=== PATIENT | female | born 1960 | race Caucasian/White ===

== ENCOUNTER → 2017-05-17 | Outpatient (CLI) | payer BC ==
--- NOTE | 2017-05-17 14:20 | MR ---
EXAMINATION TYPE: MR knee LT wo con DATE OF EXAM: 05/17/2017 COMPARISON: NONE HISTORY: Meniscus Tear, left knee pain TECHNIQUE: Multiplanar, multisequence imaging of the left knee is performed without IV contrast. FINDINGS: MEDIAL MENISCUS: Anterior and posterior horns are intact without tear. 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 LATERAL MENISCUS: Anterior and posterior horns are intact without tear. CRUCIATE LIGAMENTS: The anterior and posterior cruciate ligaments are intact and unremarkable. COLLATERAL LIGAMENTS: The medial collateral ligament and lateral collateral ligament complex are inta ct and unremarkable. EXTENSOR MECHANISM: Visualized quadriceps and patellar tendons are intact. EFFUSION: No significant suprapatellar joint effusion. POPLITEAL CYST: No popliteal/lundberg cyst. TRICOMPARTMENT SPACES: There is fibrillation and thinning of the patellar cartilage particularly cent rally and along the medial patellar facet. There is a small amount of edema involving the lower pole of the patella and along the office fat pad. BONE MARROW SIGNAL: Small amount of marrow edema involving the inferior pole the patella. IMPRESSION: 1. 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 There is al so a small area of marrow edema involving the inferior pole with no fracture line. A mild amount of i nflammation and edema in the infrapatellar fat pad. 2. Intrasubstance signal within the posterior horn the medial meniscus most typical of myxoid degener ation no definite tear.
== END | disposition home or self-care (01) ==
LOC: RADMRIMAIN 13:26
PROVIDERS: ATTEND Student in an Organized Health Care Education/Training Program
DX: M22.42 Chondromalacia patellae, left knee (principal); M23.322 Other meniscus derangements, posterior horn of medial meniscus, left knee; M79.4 Hypertrophy of (infrapatellar) fat pad

== ENCOUNTER → 2018-05-03 | Outpatient (CLI) | payer BC ==
--- NOTE | 2018-05-04 15:07 | MM ---
Reason for exam: screening (asymptomatic). Last mammogram was performed 11 months ago. History: Patient is postmenopausal and had first child at age 34. Physical Findings: A clinical breast exam by your physician is recommended on an annual basis and results should be correlated with mammographic findings. MG 3D Screening Mammo W/Cad Bilateral CC and MLO view(s) were taken. Prior study comparison: June 13, 2017, bilateral MG screening mammo w CAD. June 03, 2016, bilateral MG screening mammo w CAD. The breast tissue is heterogeneously dense. This may lower the sensitivity of mammography. No significant changes when compared with prior studies. ASSESSMENT: Benign, BI-RAD 2 RECOMMENDATION: Routine screening mammogram of both breasts in 1 year.
== END | disposition home or self-care (01) ==
LOC: RADMAMWWP 09:32
PROVIDERS: ATTEND Obstetrics & Gynecology
DX: Z12.31 Encounter for screening mammogram for malignant neoplasm of breast (principal)
CPT/HCPCS: 77063; 77067

== ENCOUNTER → 2019-04-23 | Outpatient (CLI) | payer BC ==
--- NOTE | 2019-04-24 11:55 | MM ---
Reason for exam: screening (asymptomatic). Last mammogram was performed 1 year ago. History: Patient is postmenopausal and had first child at age 34. Physical Findings: A clinical breast exam by your physician is recommended on an annual basis and results should be correlated with mammographic findings. MG 3D Screening Mammo W/Cad Bilateral CC and MLO view(s) were taken. XCCL view(s) were taken of the right breast. Prior study comparison: May 03, 2018, bilateral MG 3d screening mammo w/cad. June 13, 2017, bilateral MG screening mammo w CAD. The breast tissue is heterogeneously dense. This may lower the sensitivity of mammography. There is no discrete abnormality. ASSESSMENT: Negative, BI-RAD 1 RECOMMENDATION: Routine screening mammogram of both breasts in 1 year.
== END | disposition home or self-care (01) ==
LOC: RADMAMWWP 07:53
PROVIDERS: ATTEND Obstetrics & Gynecology
DX: Z12.31 Encounter for screening mammogram for malignant neoplasm of breast (principal)
CPT/HCPCS: 77063; 77067

== ENCOUNTER → 2020-05-11 | Outpatient (CLI) | payer BC ==
--- NOTE | 2020-05-12 09:43 | MM ---
Reason for exam: screening (asymptomatic). Last mammogram was performed 1 year and 1 month ago. History: Patient is postmenopausal and had first child at age 34. Physical Findings: A clinical breast exam by your physician is recommended on an annual basis and results should be correlated with mammographic findings. MG 3D Screening Mammo W/Cad Bilateral CC and MLO view(s) were taken. Prior study comparison: April 23, 2019, bilateral MG 3d screening mammo w/cad. May 03, 2018, bilateral MG 3d screening mammo w/cad. The breast tissue is heterogeneously dense. This may lower the sensitivity of mammography. There is no discrete abnormality. No significant changes when compared with prior studies. ASSESSMENT: Negative, BI-RAD 1 RECOMMENDATION: Routine screening mammogram of both breasts in 1 year.
== END | disposition home or self-care (01) ==
LOC: RADMAMWWP 08:37
PROVIDERS: ATTEND Obstetrics & Gynecology
DX: Z12.31 Encounter for screening mammogram for malignant neoplasm of breast (principal)
CPT/HCPCS: 77063; 77067

== ENCOUNTER → 2021-04-30 | Outpatient (CLI) | payer BC ==
--- NOTE | 2021-05-03 12:07 | MM ---
Reason for exam: screening (asymptomatic). Last mammogram was performed 1 year ago. History: Patient is postmenopausal and had first child at age 34. Took hormonal contraceptives for 5 years. Physical Findings: A clinical breast exam by your physician is recommended on an annual basis and results should be correlated with mammographic findings. MG 3D Screening Mammo W/Cad Bilateral CC and MLO view(s) were taken. Prior study comparison: May 11, 2020, bilateral MG 3d screening mammo w/cad. April 23, 2019, bilateral MG 3d screening mammo w/cad. May 03, 2018, bilateral MG 3d screening mammo w/cad. The breast tissue is heterogeneously dense. This may lower the sensitivity of mammography. No significant changes when compared with prior studies. ASSESSMENT: Benign, BI-RAD 2 RECOMMENDATION: Routine screening mammogram of both breasts in 1 year.
== END | disposition home or self-care (01) ==
LOC: RADMAMWWP 09:45
PROVIDERS: ATTEND Obstetrics & Gynecology
DX: Z12.31 Encounter for screening mammogram for malignant neoplasm of breast (principal); Z78.0 Asymptomatic menopausal state
CPT/HCPCS: 77063; 77067

== ENCOUNTER → 2021-12-10 | Outpatient (CLI) | payer BC ==
--- NOTE | 2021-12-13 18:41 | MM ---
Reason for Exam: Screening (asymptomatic). Last screening mammogram was performed 8 month(s) ago. Patient History: Menarche at age 13. First Full-Term at age 34. Late child-bearing (after 30). Postmenopausal. Patient used Hormonal Contraceptives for 5 years. Paternal grandmother had breast cancer, age 40. Risk Values: Nery 5 year model risk: 2.0%. NCI Lifetime model risk: 10.0%. Prior Study Comparison: 04/23/2019 Bilateral Screening Mammogram, [facility]. 05/11/2020 Bilateral Screening Mammogram, [facility]. 04/30/2021 Bilateral Screening Mammogram, [facility]. Tissue Density: The breast tissue is heterogeneously dense. This may lower the sensitivity of mammography. Findings: Analyzed By CAD. No significant change from prior exams. Overall Assessment: Negative, BI-RAD 1 Management: Screening Mammogram of both breasts. 1. The patient should continue monthly breast exams. 2. This exam should not preclude additional follow-up of suspicious palpable abnormalities. Electronically signed and approved by: Maci Steward M.D. Radiologist
== END | disposition home or self-care (01) ==
LOC: RADMAMWWP 07:19
PROVIDERS: ATTEND Obstetrics & Gynecology
DX: Z12.31 Encounter for screening mammogram for malignant neoplasm of breast (principal); Z78.0 Asymptomatic menopausal state; Z80.3 Family history of malignant neoplasm of breast
CPT/HCPCS: 77063; 77067

== ENCOUNTER → 2022-05-19 | Outpatient (CLI) | payer BC ==
--- NOTE | 2022-05-19 16:47 | US ---
EXAMINATION TYPE: US thyroid st tissue head/neck DATE OF EXAM: 05/19/2022 COMPARISON: NONE CLINICAL HISTORY: 61-year-old female R22.1 LOCALIZED SWELLING, MASS AND LUMP, NECK. Palpable under ma ndible, just right of midline neck TECHNIQUE: Multiple sonographic images of the thyroid gland are obtained. FINDINGS: GLAND SIZE: Right Lobe: 5.5 x 1.5 x 1.3 cm Overall Parenchyma: homogenous Left Lobe: 4.0 x 1.2 x 1.7 cm Overall Parenchyma: homogeneous Isthmus Thickness: 0.3 cm NODULES RIGHT: # of nodules measured on right: 0 LEFT: # of nodules measured on left: 1 1. 1.2 X 0.7 x 0.8 cm, lower , benign cyst, which is wider than tall, with smooth margins, without echogenic foci. Prior size: PHARM SPEC ISTHMUS: # of nodules measured in the isthmus: 0 Additional targeted scanning along the patient's right-sided palpable site shows a thickened lymph no de measuring 1.3 x 1.1 x 0.6 cm near the right submandibular region. IMPRESSION: 1. A thickened and mildly enlarged 1.1 cm right submandibular lymph node at the patient's palpable si te. Correlate with physical exam findings to assess if this represents a suspicious node for which pe rcutaneous biopsy would be needed. Clinically, if this is suspected to represent a reactive/post infl ammatory lymph node, short interval follow-up ultrasound can be performed instead. 2. A benign 1.2 cm cyst of the left thyroid gland. No other thyroid nodules seen. 2017 ACR TI-RADS LEVEL: *Highest TI-RADS level nodule reported By [facility]. SHE IS ORIENTED IN AUGUST
== END | disposition home or self-care (01) ==
LOC: RADUSWWP 13:23
PROVIDERS: ATTEND Family Medicine
DX: E04.1 Nontoxic single thyroid nodule (principal); R59.0 Localized enlarged lymph nodes
CPT/HCPCS: 76536

== ENCOUNTER → 2022-11-22 | Outpatient (CLI) | payer BC ==
--- NOTE | 2022-11-22 09:06 | CT ---
EXAMINATION TYPE: CT sinus wo con CT DLP: 374 mGycm, Automated exposure control for dose reduction was used. DATE OF EXAM: 11/22/2022 7:28 AM COMPARISON: None. CLINICAL INDICATION:Female, 62 years old with history of G50.1 Atypical facial pain; Chronic sinusit is, atypical facial pain TECHNIQUE: Multiple thin axial images were obtained through the paranasal sinuses without the use of IV contrast. Additional coronal and sagittal reformatted images were submitted for evaluation. Contrast used: none Oral contrast used: none FINDINGS: Frontal sinuses: Normally developed and aerated. Frontal Recess: Clear Maxillary Sinuses: Normally developed and aerated. Maxillary Infundibula([facility]): Opacified left secondary to mucosal thickening. The right is patent. Ethmoid sinuses: Normally developed and aerated. Ethmoidal notch: Unprotected bilateral anterior ethm oidal arteries. Modified [place] Score: Sphenoid sinuses: Normally developed with mild mucosal thickening. There is sellar sphenoid sinus pne umatization without evidence of dehiscence. No dehiscence of carotid canal. No evidence of optic ner ve dehiscence within the sphenoid sinus. No evidence of Onodi cells. Sphenoethmoidal recesses: Clear . Nasal septum: Within normal limits.. Nasal Turbinates: Within normal limits. Mastoid air cells & middle ears: The air cells are clear. The middle ears are grossly unremarkable. Modified Soft tissues & Brain: Partially seen without gross abnormality. Globes are intact. Other: Cribriform plate demonstrates symmetric Keros classification type 2 cribriform plate. No evidence of bony dehiscence of skull base. Lamina papyracea is intact without evidence of remote orbital fracture or orbital prolapse into the e thmoid sinus. IMPRESSION: 1. No significant mucosal sinus disease. 2. The ostiomeatal units are opacified on the left and patent on the right, the frontonasal and sphen oethmoidal recesses are clear.
== END | disposition home or self-care (01) ==
LOC: RADCTMAIN 06:57
PROVIDERS: ATTEND Otolaryngology
DX: J32.9 Chronic sinusitis, unspecified (principal)
CPT/HCPCS: 70486

== ENCOUNTER → 2023-01-12 | Outpatient (CLI) | payer BC ==
--- NOTE | 2023-01-13 14:34 | MM ---
Reason for Exam: Screening (asymptomatic). Last mammogram was performed 1 year(s) and 1 month(s) ago. Patient History: Menarche at age 13. First Full-Term at age 34. Late child-bearing (after 30). Postmenopausal. Patient used Hormonal Contraceptives for 5 years. Paternal grandmother had breast cancer, age 40. Risk Values: Nery 5 year model risk: 2.0%. NCI Lifetime model risk: 9.7%. Prior Study Comparison: 05/11/2020 Bilateral Screening Mammogram, [facility]. 04/30/2021 Bilateral Screening Mammogram, [facility]. 12/10/2021 Bilateral MG 3D screening mammo w/cad, [facility]. Tissue Density: The breast tissue is heterogeneously dense. This may lower the sensitivity of mammography. Findings: Analyzed By CAD. Pattern appears symmetrical and stable. No significant interval change is evident No suspicious groups of microcalcifications, spiculated or lobular masses, architectural distortion or other secondary signs of malignancy are mammographically apparent. Overall Assessment: Benign, BI-RAD 2 Management: Screening Mammogram of both breasts in 1 year. A negative mammogram report should not preclude additional follow up of suspicious palpable abnormalities. Patient should continue monthly self breast exam. A clinical breast exam by your physician is recommended on an annual basis and results should be correlated with mammographic findings. Electronically signed and approved by: Harris Fernandez D.O. Radiologis
== END | disposition home or self-care (01) ==
LOC: RADMAMWWP 07:40
PROVIDERS: ATTEND Obstetrics & Gynecology
DX: Z12.31 Encounter for screening mammogram for malignant neoplasm of breast (principal); Z78.0 Asymptomatic menopausal state; Z80.3 Family history of malignant neoplasm of breast
CPT/HCPCS: 77063; 77067

== ENCOUNTER → 2024-01-15 | Outpatient (CLI) | payer BC ==
--- NOTE | 2024-01-21 15:48 | MM ---
Reason for Exam: Screening (asymptomatic). Last screening mammogram was performed 12 month(s) ago. Patient History: Menarche at age 13. First Full-Term at age 34. Late child-bearing (after 30). Postmenopausal. Patient used Hormonal Contraceptives for 5 years. Paternal grandmother had breast cancer, age 40. Risk Values: Nery 5 year model risk: 2.1%. NCI Lifetime model risk: 9.4%. Prior Study Comparison: 04/30/2021 Bilateral Screening Mammogram, [facility]. 12/10/2021 Bilateral MG 3D screening mammo w/cad, [facility]. 01/12/2023 Bilateral MG 3D screening mammo w/cad, [facility]. Tissue Density: The breasts are heterogeneously dense, which may obscure small masses. Findings: Analyzed By CAD. The pattern is symmetrical. Pattern appears symmetrical and stable. No significant change. Nodularity is within the right breast unchanged from comparison No suspicious groups of microcalcifications, spiculated or lobular masses, architectural distortion or other secondary signs of malignancy are mammographically apparent. Overall Assessment: Benign, BI-RAD 2 Management: Screening Mammogram of both breasts in 1 year. A negative mammogram report should not preclude additional follow up of suspicious palpable abnormalities. Patient should continue monthly self breast exam. A clinical breast exam by your physician is recommended on an annual basis and results should be correlated with mammographic findings. Note on Nery scores and lifetime risk: 1. A Nery score greater than 3% is considered moderate risk. If this is the case, consider specialist referral to assess eligibility for a risk reducing agent. 2. If overall lifetime risk for the development of breast cancer is 20% or higher, the patient may qualify for future screening with alternating mammogram and breast MRI. Electronically signed and approved by: Harris Fernandez D.O. Radiologis
== END | disposition home or self-care (01) ==
LOC: RADMAMWWP 07:35
PROVIDERS: ATTEND Obstetrics & Gynecology
DX: Z12.31 Encounter for screening mammogram for malignant neoplasm of breast (principal); R92.333 Mammographic heterogeneous density, bilateral breasts; Z78.0 Asymptomatic menopausal state; Z80.3 Family history of malignant neoplasm of breast
CPT/HCPCS: 77063; 77067